=== PATIENT | female | born 1960 | race Caucasian/White ===

== ENCOUNTER 2017-04-16 07:38 | Emergency (ER) | payer BC, OTHER ==
[2017-04-16 07:49] VITALS: BP 124/70
--- NOTE | 2017-04-16 08:22 | RAD ---
INDICATION: Left rib injury. COMPARISON: Comparison is made with prior chest x-ray study from November 17, 2012. TECHNIQUE: 2 views of the left ribs and dual-energy PA views of the chest were obtained. FINDINGS: There is cortical irregularity in the anterolateral left sixth rib suggestive of a nondisplaced fracture. The heart is within normal limits in size. The lungs are clear. There is no evidence for pneumothorax or pleural effusion. IMPRESSION: POSSIBLE NONDISPLACED FRACTURE OF THE LEFT ANTEROLATERAL SIXTH RIB.
--- NOTE | 2017-04-16 08:22 | UC ---
Back Pain HPI - HPI Summary HPI Summary: States during a softball game last night she collided with another player and injured left torso. c/o left rib pain, worse with deep breath or twisting movement. did not get knocked down. [ End ] - History of Current Complaint Chief Complaint: UCGeneralIllness Stated Complaint: LEFT RIB PAIN/INJURY Time Seen by Provider: 04/16/17 07:52 Hx Obtained From: Patient Hx Last Menstrual Period: n/a ?: No Onset/Duration: Sudden Onset Timing: Intermittent Aggravating: Movement Alleviating: Rest - Allergies/Home Medications Allergies/Adverse Reactions: Allergies Allergy/AdvReac Type Severity Reaction Status Date / Time No Known Allergies Allergy Verified 04/16/17 07:48 PMH/Surg Hx/FS Hx/Imm Hx Previously Healthy: Yes Other History Of: Negative For: HIV, Hepatitis B, Hepatitis C, Anticoagulant Therapy - Surgical History Surgical History: Yes Surgery Procedure, Year, and Place: 2000 ARTHROSCOPIC RT KNEE [facility]. gastric bypass surgery November 2012 - Family History Known Family History: Positive: None - Social History Occupation: Employed Full-time Lives: With Family Alcohol Use: Occasionally Substance Use Type: None Smoking Status (MU): Never Smoked Tobacco Review of Systems Constitutional: Negative Skin: Negative Eyes: Negative ENT: Negative Respiratory: Negative Cardiovascular: Negative Gastrointestinal: Negative Genitourinary: Negative Motor: Negative Neurovascular: Negative Musculoskeletal: Arthralgia Neurological: Negative Psychological: Negative All Other Systems Reviewed And Are Negative: Yes Physical Exam Triage Information Reviewed: Yes Appearance: Well-Appearing, No Pain Distress, Well-Nourished Vital Signs: Initial Vital Signs Temp 98.2 F 04/16/17 07:43 Pulse 61 04/16/17 07:43 Resp 16 04/16/17 07:43 BP 124/70 04/16/17 07:43 Pulse Ox 99 04/16/17 07:43 Vital Signs Reviewed: Yes Eye Exam: Normal ENT Exam: Normal Dental Exam: Normal Neck exam: Normal Neck: Positive: 1 Respiratory Exam: Normal Cardiovascular Exam: Normal Abdominal Exam: Normal Abdomen Description: Positive: Other: - left anterior rib pain to palpation and extends to the lateral margin 2 in below the breast. no ecchymosis. no skin changes. no break in skin.. Negative: CVA Tenderness (R), CVA Tenderness (L) Musculoskeletal Exam: Normal Musculoskeletal: Positive: Strength Intact, Other: - no neck pain or sp tenderness, no shoulder or elbow pain to palpation an exam WNL. Neurological Exam: Normal Psychological Exam: Normal Skin Exam: Normal Back Pain Course/Dx - Differential Dx/Diagnosis Differential Diagnosis/HQI/PQRI: Strain, Sprain Provider Diagnoses: 6th rib fracture Discharge - Discharge Plan Condition: Good Disposition: HOME Patient Education Materials: Rib Fracture (ED) Referrals: Abril Law MD [Primary Care Provider] - 3 Days (if any concerns )
== END 2017-04-16 08:36 | disposition home or self-care (01) ==
LOC: UCCORT 07:38
DX: S22.32XA Fracture of one rib, left side, initial encounter for closed fracture (principal); W51.XXXA Accidental striking against or bumped into by another person, initial encounter; Y93.64 Activity, baseball; Y92.320 Baseball field as the place of occurrence of the external cause; Z98.84 Bariatric surgery status
CPT/HCPCS: 99211; G0463

== ENCOUNTER 2019-07-16 09:06 | Emergency (ER) | payer BC ==
--- OUTSIDE RECORDS SUMMARY | 2019-07-16 09:13 | XMS REPORT | Continuity of Care Document ---
:1960 External Reference #:[id number] Author Name Mariam Simpson PA Address [address] [place] [address] Care Team Providers Name Role Phone Tito Moreau MD - Family Care Team Information Med Specialist Medicine Problems Active Problems Provider Date Localized, primary osteoarthritis Mariam Simpson PA Onset: 04/05/2019 Social History Type Date Description Comments Sex Unknown Tobacco Use Start: Unknown Never Smoked Cigarettes ETOH Use Currently consumes alcohol socially Recreational Drug Use Denies Drug Use Tobacco Use Start: Unknown Patient denies history of smoking Smoking Status Reviewed: 05/24/19 Patient denies history of smoking Allergies, Adverse Reactions, Alerts Description No Known Drug Allergies Medications Active Medications SIG Qnty Indications Ordering Provider Date Childrens Chewable 1 by mouth every Unknown Multivitamin With Iron day Chewtabs Vitamin D 1 by mouth Unknown 2000Unit Tablets daily. Vitamin B12 1 by mouth every Unknown 500mcg Tablets day Calcium 600/Vitamin D3 2 tab by mouth Unknown 1x/day [id number] Tablets Medications Administered in Office Medication SIG Qnty Indications Ordering Provider Date Depomedrol 40mg/1cc Mariam Simpson PA 04/05/2019 (methylprednisolone acetate) Injection Immunizations Description No Information Available Vital Signs Date Vital Result Comment 06/06/2019 8:36am BP Systolic 112 mmHg BP Diastolic 68 mmHg Body Temperature 96.8 F Heart Rate 74 /min Height 66 inches 5'6" Weight 228.00 lb BMI (Body Mass Index) 36.8 kg/m2 BSA (Body Surface Area) 2.11 m2 [place] body weight in kilograms 59 kg O2 % BldC Oximetry 98 % Results Description No Information Available Procedures Date Code Description Status 04/05/2019 26613 Radiology, Knee 3 Views Completed 04/05/2019 30173 Asp./Injection major joint Completed Medical Devices Description No Information Available Encounters Type Date Location Provider Dx Diagnosis Office Visit 06/06/2019 Orthopaedic Office Mariam Simpson, M17.11 Unilateral primary 8:30a [place] osteoarthritis, right knee R20.8 Other disturbances of skin sensation Office Visit 04/05/2019 10:00a Orthopaedic Office Mariam Simpson, M25.561 Pain in PA right knee M17.11 Unilateral primary osteoarthritis, right knee Assessments Date Code Description Provider 06/06/2019 M17.11 Unilateral primary osteoarthritis, right knee Mariam Simpson, HECTOR 06/06/2019 R20.8 Other disturbances of skin sensation Mariam Simpson PA 04/05/2019 M25.561 Pain in right knee Mariam Simpson PA 04/05/2019 M17.11 Unilateral primary osteoarthritis, right knee Mariam Simpson PA Plan of Treatment 06/06/2019 - Mariam Simpson, PAM17.11 Unilateral primary osteoarthritis, right kneeComments:In regards to the knee and recommend continued conservative management. I explained that we could repeat the injection at 3 months if need be. She will call to schedule once the pain is starting to return. Euflexxa is always an option as well. In regards to the toe numbness I have recommended follow-up with her primary care provider to determine the etiology.R20.8 Other disturbances of skin sensation Functional Status Description No Information Available Mental Status Description No Information Available Referrals Description No Information Available
[2019-07-16 09:39] VITALS: BP 123/66
--- NOTE | 2019-07-16 10:46 | UC ---
Knee Pain HPI - HPI Summary HPI Summary: Pt presents with c/o sudden onset right knee pain and stiffness. pt describes it as "locked in position". Pt denies injury or overuse. Pt states that she can flex right knee but is unable to extend right knee fully. Pt is unable to bear weight. - History of Current Complaint Chief Complaint: UCLowerExtremity Stated Complaint: RT KNEE PAIN Time Seen by Provider: 07/16/19 10:04 Hx Obtained From: Patient Hx Last Menstrual Period: n/a ?: No Onset/Duration: Sudden Onset - today, Still Present Severity Initially: Moderate Severity Currently: Moderate Pain Intensity: 0 Character: Dull, Aching, Stiffness Aggravating Factor(s): Movement, Weight Bearing Alleviating Factor(s): Rest - helps relieve pain but nothing improves ROM, Nothing Associated Signs And Symptoms: Positive: Negative Able to Bear Weight: No - Risk Factors Septic Arthritis Risk Factor: Negative Gout Risk Factor: Age ^ 41, Obesity - Allergies/Home Medications Allergies/Adverse Reactions: Allergies Allergy/AdvReac Type Severity Reaction Status Date / Time No Known Allergies Allergy Verified 07/16/19 09:35 PMH/Surg Hx/FS Hx/Imm Hx Previously Healthy: Yes Other History Of: Negative For: HIV, Hepatitis B, Hepatitis C, Anticoagulant Therapy - Surgical History Surgical History: Yes Surgery Procedure, Year, and Place: Gastric Bypass, [place]; Right Knee Arthroscopy, [place] - Family History Known Family History: Positive: Cardiac Disease - Social History Lives: With Family Alcohol Use: Occasionally Substance Use Type: None Smoking Status (MU): Never Smoked Tobacco Have You Smoked in the Last Year: No - Immunization History Vaccination Up to Date: Yes Review of Systems All Other Systems Reviewed And Are Negative: Yes Constitutional: Positive: Negative Skin: Positive: Negative Eyes: Positive: Negative ENT: Positive: Negative Respiratory: Positive: Negative Cardiovascular: Positive: Negative Gastrointestinal: Positive: Negative Genitourinary: Positive: Negative Motor: Positive: Decreased ROM - right knee Neurovascular: Positive: Negative Musculoskeletal: Positive: Arthralgia - right knee, Decreased ROM - right knee Neurological: Positive: Negative Psychological: Positive: Negative Is Patient Immunocompromised?: No Physical Exam Triage Information Reviewed: Yes Appearance: Obese Vital Signs: Initial Vital Signs Temp 98.3 F 07/16/19 09:32 Pulse 66 10/26/19 09:32 Resp 16 07/16/19 09:32 BP 123/66 07/16/19 09:32 Pulse Ox 100 07/16/19 09:32 Vital Signs Reviewed: Yes Eye Exam: Normal ENT: Positive: Hearing grossly normal Respiratory: Positive: No respiratory distress Musculoskeletal: Positive: ROM Limited @ - right knee unable to fully extend right knee. able to flex right knee to at least 90 degress. Neurological Exam: Normal Psychological Exam: Normal Skin Exam: Normal Diagnostics - Radiology No standard instances Radiology Interpretation Completed By: Radiologist - Waste Management Recycling Technician: Tito Hurst F ([id number]) Post Acute Care Nurse Practitioner: KRISHNA (NUANCE) Report Date: 10:08:00 Report Status: Final Start of Report Content = Patient Name: EMERSON COLLADO Medical Record#: [id number] Ordering Physician: Delores Hale OPTICAL ADVISOR Acct.#: [id number] : 1960 Age: 59 Sex: F Location: [facility] Exam Date: 07/16/19 1008 ADM Status: REG ER Order Information: KNEE RIGHT 4+ VWS Accession Number: [id number] CPT: 83526 INDICATION: Atraumatic knee pain. TECHNIQUE: 4 views of the right knee were obtained. FINDINGS: The bones appear osteopenic. No joint effusion or fracture is seen. There is moderate to severe osteoarthritic change in the lateral compartment and [id number] osteoarthritic change in the medial and patellofemoral compartments. IMPRESSION: 1. OSTEOPENIA. 2. MODERATE TO SEVERE OSTEOARTHRITIC CHANGE. ___ <Electronically signed by Tito Hurst MD in OV> 07/16/19 1034 Dictated By: Tito Hurst MD Dictated Date/Time: 07/16/191031 Transcribed Date/Time: 07/16/191031 Copy to: CC:Delores Hale OPTICAL ADVISOR; Emerson Brown MD; Kemi Moreau NP Imaging - [facility] Imaging - [facility] Imaging - [facility] [address] [place] [address] ph ([phone] ph ) ph ([phone]) End of Report Content Knee Pain Course/Dx - Differential Dx/Diagnosis Differential Diagnosis/HQI/PQRI: Other - knee pain Provider Diagnosis: Arthritis of knee, right, Decreased range of motion (ROM) of right knee Discharge ED - Sign-Out/Discharge Documenting (check all that apply): Patient Departure All imaging exams completed and their final reports reviewed: Yes - Discharge Plan Condition: Stable Disposition: HOME Patient Education Materials: Knee Pain (ED), Arthritis (ED) Referrals: Diogo Pollock MD [Medical Doctor] - As Soon As Possible Kemi Moreau [Primary Care Provider] - If Needed - Billing Disposition and Condition Condition: STABLE Disposition: Home
== END 2019-07-16 10:54 | disposition home or self-care (01) ==
LOC: UCCORT 09:06
DX: M17.11 Unilateral primary osteoarthritis, right knee (principal); M85.861 Other specified disorders of bone density and structure, right lower leg; R29.898 Other symptoms and signs involving the musculoskeletal system
CPT/HCPCS: 99211; G0463